=== PATIENT | male | born 1970 | race Caucasian/White ===

== ENCOUNTER 2016-08-09 19:00 | Observation (INO) | payer OTHER ==
[~2016-08-09] VITALS: Ht 175.3 cm; Wt 81.6 kg
--- NOTE | 2016-08-09 19:57 | NUR ---
The patient, PEDRITO MCFARLAND, 46 y/o, M admitted by MARIBEL HIGHTOWER MD, was given written information regarding hospital policies, unit procedures and contact persons. Valuables were checked and oriented to room. Pt lethargic upon arrival, but A&O4. VSS. 2L of O2 on. by bedside. Will continue to monitor.
[2016-08-09] MEDS ORDERED: HYDROCODONE/APAP 5/325MG TABLET. PO PRN ×3 (20:00→20:15)
[2016-08-09] MEDS ORDERED: IV NORMAL SALINE 1,000ML 1,000 ML IV SCH (20:00)
[2016-08-09] MEDS ORDERED: ONDANSETRON PF 4 MG/2 ML VIAL. IV PRN (20:30)
[2016-08-09 21:04] LABS: BASO % 0 % (0-3); EOS % 0 % (0-3); HEMATOCRIT 46.4 % (39.0-53.0); HEMOGLOBIN 15.5 g/dL (13.0-17.5); LYMPH # 0.8 x10^3/uL (1.0-4.8); LYMPH % 7 % (24-48); MEAN CORPUSCULAR HEMOGLOBIN 28 pg (25-35); MEAN CORPUSCULAR HGB CONC 33 g/dL (31-37); MEAN CORPUSCULAR VOLUME 85 fL (79-100); MONO # 0.3 x10^3/uL (0.0-1.1); MONO % 2 % (0-9); NEUT # 11.2 x10^3uL (1.8-7.7); NEUT % 91 % (31-73); PLATELET COUNT 222 x10^3/uL (140-400); RED BLOOD COUNT 5.49 x10^6/uL (4.30-5.70); RED CELL DISTRIBUTION WIDTH 14.6 % (11.5-14.5); WHITE BLOOD COUNT 12.3 x10^3/uL (4.0-11.0)
[2016-08-09] MEDS ORDERED: ONDANSETRON ODT 4 MG TAB.RAPDIS PO PRN (21:15)
[2016-08-09 21:57] LABS: ALBUMIN 3.6 g/dL (3.4-5.0); CALCIUM 8.8 mg/dL (8.5-10.1); CREATININE 1.1 mg/dL (0.7-1.3); GFR 71.8; POTASSIUM 3.8 mmol/L (3.5-5.1); TOTAL BILIRUBIN 1.3 mg/dL (0.2-1.0); TOTAL PROTEIN 7.1 g/dL (6.4-8.2)
[2016-08-10 08:00] VITALS: BP 121/76
[2016-08-10 11:32] VITALS: BP 120/73
[2016-08-10 14:30] VITALS: BP 130/75
[2016-08-10] MEDS ORDERED: RIVA10TA PO (14:54)
[2016-08-10] MEDS ORDERED: HYDR12.58 PO (14:54)
[2016-08-10] MEDS ORDERED: AMLO5TAB2 PO (14:55)
--- NOTE | 2016-08-10 15:00 | NUR ---
Pt d/c A&Ox4 via wheelchair, pt accompanied by and AKSHAT Quinones to waiting veh at [facility] front entrance
--- NOTE | 2016-08-10 16:10 | SSS ---
ADMIT DATE: 08/09/2016 HISTORY OF PRESENT ILLNESS: The patient is a 46-year-old male patient who underwent left partial knee replacement at the [facility]. Postoperatively, he was slow to wake up and decision was made to admit him for observation overnight. By the time he arrived here was more awake and alert, although continued to have difficulty moving his upper extremities; however, he remained hemodynamically stable. This morning, he was definitely more awake and alert. He has been using his arms without difficulty. His pain was well controlled. ____ infusion pump is working without any complications. He continues to be in the left knee brace and has remained stable. A decision was made to discharge him home to follow with his orthopedic surgeon. PAST MEDICAL HISTORY: Significant for hypertension, hyperlipidemia, and Gilbert disease. PAST SURGICAL HISTORY: Significant for cervical spine fusion, appendectomy, arthroscopic surgery of the right knee twice, and left partial knee replacement. ALLERGIES: HE IS ALLERGIC TO METHOCARBAMOL WELL SYNVISC. MEDICATIONS: He is currently on Xarelto 10 mg once a day for 2 weeks, oxycodone 10 mg every 4-6 hours, OxyContin 10 mg p.o. b.i.d., hydrochlorothiazide 25 mg once a day, amlodipine 5 mg once a day, and OxyContin 10 mg twice a day. FAMILY HISTORY: He has one older sister who is a smoker and has myocardial infarction. Younger sister is healthy. His father is in his 70s and has hypertension and thrombocytopenia. Mother is alive in her 70s and has hypertension. SOCIAL HISTORY: He is and has 1 son from ex-. He is ex-smoker, quit in 1997. He occasionally smokes cigar. He drinks alcohol rarely. Does not use any drugs. He is retired [employer]. REVIEW OF SYSTEMS: The patient denied any blurring of vision, cataract, glaucoma, or macular degeneration. Denied any earache, tinnitus, or sensorineural deafness. Denied any nosebleeds, stuffy nose, or postnasal drip. Denied any sore throat, sore tongue, toothache, hoarseness of voice, or difficulty swallowing. Denied any nausea, vomiting, diarrhea, or constipation. Denied any hematemesis, melena, or hematochezia. Denied any dysuria, frequency, or hematuria. Denied any chest pain or shortness of breath. He denied any cough, phlegm, or hemoptysis. PHYSICAL EXAMINATION: GENERAL: When I examined him, he looked well and was clearly in no apparent respiratory distress and pale, but no jaundice, cyanosis, or thyromegaly. No jugular venous distention. No limb edema. VITAL SIGNS: His heart rate was 85, blood pressure 120/73, temperature was 98, respiratory rate was 18, and oxygen saturation was 95% on room air. HEENT: Showed normocephalic and atraumatic. NECK: Supple. HEART: Showed normal first and second heart sounds. No gallop, rub, or murmur. CHEST: Clear to auscultation. No crepitation or rhonchi. ABDOMEN: Distended, soft, and nontender. No guarding or rigidity. No organomegaly. Hernial orifices intact. Bowel sounds normal. NEUROLOGIC: He was awake, alert, and responding appropriately. Cranial nerves are intact. He moves his upper extremities without difficulty. He has left knee brace in place; however, is able to ambulate with crutches and has been out of the bathroom 3 times so far this morning. LABORATORY DATA: His lab work showed a serum sodium 138, potassium 3.8, chloride 100, bicarbonate 31, anion gap of 7, BUN 12, creatinine 1.1, estimated GFR was 72 mL per minute. His glucose 145 and calcium was 8.8. Total bilirubin is slightly elevated. AST, ALT, and alkaline phosphatase were normal. Total protein was 7.1 and albumin was 3.6. White cell count was 12,300, hemoglobin 14.5, hematocrit 46, MCV 85, and platelet count 221,000 with normal manual differential. DISCHARGE MEDICATIONS: The patient will be discharged home to continue on following medications amlodipine 5 mg once a day, hydrochlorothiazide 25 mg once a day, OxyContin 10 mg twice a day, oxycodone 10 mg every 4-6 hours, and rivaroxaban for Xarelto 10 mg once a day for 2 weeks. FINAL DISCHARGE DIAGNOSIS: 1. Partial left knee replacement. 2. Hypertension. 3. Hyperlipidemia. 4. Gilbert disease. MARIBEL HIGHTOWER MD DR: HEBER/romulo JOB#: [id number] / [id number]
== END 2016-08-10 15:30 | disposition home or self-care (01) ==
LOC: 1 SOUTH 19:00
PROVIDERS: ADMIT Internal Medicine; ATTEND Internal Medicine
DX: Z47.1 Aftercare following joint replacement surgery (principal); I10 Essential (primary) hypertension; E78.5 Hyperlipidemia, unspecified; E80.4 Gilbert syndrome; F17.290 Nicotine dependence, other tobacco product, uncomplicated; Z96.652 Presence of left artificial knee joint; Z82.49 Family history of ischemic heart disease and other diseases of the circulatory system
CPT/HCPCS: 36415; 80053; 85027; G0378; G0379; Q0162